=== PATIENT | female | born 1965 | race Caucasian/White ===

== ENCOUNTER → 2017-06-24 | Outpatient (CLI) | payer OTHER ==
[~2017-06-24] MED LIST: ERGO2000 PO; HYDR1CRE EX; IBUP1TAB5 PO; Z.0.BCPILL
[2017-06-24 12:26] LABS: HEMATOCRIT 42.3 % (35.0-46.0); HEMOGLOBIN 14.3 GM/DL (11.6-15.3); MEAN CELL VOLUME 87.2 FL (80.0-100.0); MEAN CORPUSCULAR HEMOGLOBIN 29.5 PG (27.0-34.0); MEAN CORPUSCULAR HGB CONC 33.9 % (32.0-36.0); PLATELET COUNT 261 TH/MM3 (150-450); RED BLOOD COUNT 4.85 MIL/MM3 (4.00-5.30); RED CELL DISTRIBUTION WIDTH 14.2 % (11.6-17.2); WHITE BLOOD COUNT 10.2 TH/MM3 (4.0-11.0)
[2017-06-24 12:37] LABS: BILIRUBIN, URINE NEG (NEG); BLOOD, URINE SMALL (NEG); GLUCOSE,URINE NEG (NEG); KETONE, URINE NEG (NEG); MUCUS URINE FEW /lpf (OCC); NITRITE,URINE NEG (NEG); SQUAMOUS EPITHELIAL CELL URINE 1 /hpf (0-5); URINE COLOR YELLOW (YELLW/STRAW); URINE LEUKOCYTE ESTERASE NEG (NEG)
[2017-06-24 12:53] LABS: BICARBONATE 31.7 MEQ/L (21.0-32.0); CALCIUM 8.3 MG/DL (8.5-10.1); CREATININE 0.8 MG/DL (0.50-1.00)
--- NOTE | 2017-06-24 13:19 | RADRPT ---
EXAM DATE/TIME: 06/24/2017 12:49 [place] COMPARISON: No previous studies available for comparison. INDICATIONS : Evaluate for penumonia, pneumothorax, or communicable disease. Pre op for hysteroscopy. MEDICAL HISTORY : None. SURGICAL HISTORY : section. ENCOUNTER: Initial ACUITY: 1 day PAIN SCORE: 0/10 LOCATION: chest FINDINGS: PA and lateral views of the chest demonstrate the lungs to be symmetrically aerated without evidence of mass, infiltrate or effusion. The cardiomediastinal contours are unremarkable. Osseous structure s are intact. CONCLUSION: No acute disease. Sarwat Addison MD on June 24, 2017 at 13:17 Board Certified Radiologist. This report was verified electronically.
--- NOTE | 2017-06-25 21:49 | EKG ---
Date Performed: 06/24/2017 Time Performed: 12:14:14 PTAGE: 51 years EKG: Sinus rhythm NORMAL ECG NO PREVIOUS TRACING DOCTOR: Javy Ponce Interpretating Date/Time 06/25/2017 21:47:47
== END ==
LOC: CPRE 11:39
PROVIDERS: ATTEND Obstetrics & Gynecology
DX: Z01.810 Encounter for preprocedural cardiovascular examination (principal); Z01.811 Encounter for preprocedural respiratory examination; Z01.812 Encounter for preprocedural laboratory examination; Z01.818 Encounter for other preprocedural examination; D25.9 Leiomyoma of uterus, unspecified; N95.9 Unspecified menopausal and perimenopausal disorder
CPT/HCPCS: 36415; 71046; 80048; 81001; 82670; 83001; 84703; 85027; 93005

== ENCOUNTER → 2017-06-30 | Day surgery (SDC) | payer OTHER ==
[~2017-06-30] VITALS: Ht 152.4 cm; Wt 92.2 kg
[~2017-06-30] MED LIST changes: +*MEPERIDINE 25 MG INJ VIAL PERIprocedural Use ONLY ONE; +*morphine SULFATE 10 MG/ML PERIprocedure ONLY ONE; +ACETAMINOPHEN 1000 MG/100 ML 100 ML IV ONE; +CHLORHEXIDINE GLUCONATE 2 % 1 PACK (2 CLOTHS) TOPICAL PRN; +DEXAMETHASONE SOD PHOS 4 MG/ML VIAL IV ONE; +DO NOT ADM ANY ANTICOAGULANT DRUGS PRN; -HYDR1CRE EX; +KETOROLAC TROMETHAMINE 30 MG/ML (IVP) VIAL IV PUSH ONE; +KETOROLAC TROMETHAMINE 60 MG/2 ML (IM) VIAL IM PRN; +LACTATED RINGER'S 1000 ML INJ 1,000 ML IV ONE; +LACTATED RINGER'S 1000 ML IV PRN; +LIDOCAINE HCL 1% PF 5 ML SYRINGE OTHER ONE; +METOPROLOL TARTRATE 25 MG TAB PO PRN; +MIDAZOLAM HCL 2 MG/2 ML VIAL ONE; +ONDANSETRON HCL 4 MG/2 ML VIAL IV ONE; +ONDANSETRON HCL 4 MG/2 ML VIAL IV PUSH PRN; +POVIDONE IODINE 5% (ANTISEPSIS KIT) 4 APPLICATIONS EACH NARE PRN; +PROPOFOL 200 MG/20 ML AMP IV ONE; +SODIUM CHLORID 0.9% 500 ML IV PRN; -Z.0.BCPILL; +ceFAZolin 2 GM PREMIX 50 ML IV SCH; +oxyCODONE/ACETAMINOPHEN 5 MG/325 MG TAB PO PRN
--- NOTE | 2017-06-30 09:51 | MP ---
cc: Liliya Ware MD DATE OF OPERATION: 06/30/2017 PREOPERATIVE DIAGNOSIS: Uterine fibroid, dysfunctional uterine bleeding. POSTOPERATIVE DIAGNOSIS: Uterine fibroid, dysfunctional uterine bleeding. PROCEDURE: Examination under anesthesia, MyoSure myomectomy. SURGEON: Dr. Ware. ANESTHESIA: General. FLUIDS: 1000 mL crystalloids. ESTIMATED BLOOD LOSS: 50 mL. URINE OUTPUT: 125 mL clear yellow on straight cath prior to procedure. FINDINGS: Multiple submucosal fibroids were noted at hysteroscopy. PROCEDURE: The patient was taken to the operating room where general anesthesia was found to be adequate. She was then prepped and draped in the normal sterile fashion in the dorsal lithotomy position. The urinary bladder was emptied of urine using sterile technique. A weighted speculum was placed in the vagina. A single-tooth tenaculum was applied to the anterior lip of the cervix. The uterus sounded to approximately 11 cm. The cervix was then gently dilated with Yosi dilators sizes 9 through 18. The 7 mm MyoSure scope was then inserted into the uterine cavity. Multiple submucosal fibroids were noted and these were resected using the MyoSure device. A total cumulative cutting time around 5 minutes. Fluid deficit was about 675 mL of saline. The tissue was sent to pathology. The hysteroscope was removed. The tenaculum and weighted speculum were removed. Hemostasis was assured. The patient was awakened from anesthesia and transferred to the recovery room in stable condition. Pathology was uterine tissue. MD CESIA Zamora/JOHN , 09:17 AM , 09:50 AM
[2017-06-30 10:15] VITALS: BP 113/66; PULSE 65; RESP 20; TEMP 97.6; O2SAT 97
== END | disposition home or self-care (01) ==
LOC: HSDC 05:47
PROVIDERS: ATTEND Obstetrics & Gynecology
DX: D25.9 Leiomyoma of uterus, unspecified (principal); N95.0 Postmenopausal bleeding
CPT/HCPCS: 00952; 58561; 86850; 86900; 86901; 88305; J0131; J1100; J1885; J2175; J2250; J2270; J2405; J3010; J7120